=== PATIENT | female | born 1955 | race Caucasian/White ===

== ENCOUNTER 2016-11-04 14:43 | Emergency (ER) | payer MEDICAID ==
[~2016-11-04] VITALS: Ht 157.5 cm; Wt 71.7 kg
[~2016-11-04 14:43] MED LIST: ALBU8I INH; ZITH250T PO
[2016-11-04 14:50] VITALS: BP 139/70; PULSE 66; RESP 16; TEMP 98.3; O2SAT 97
[2016-11-04] MEDS ORDERED: SODIUM CHLOR 0.9% 1000 ML INJ 1,000 ML IV SCH (15:02)
[2016-11-04 15:09] VITALS: BP 124/85; PULSE 61; RESP 18; O2SAT 99
[2016-11-04] MEDS ORDERED: SODIUM CHLORIDE 0.9% FLUSH 10 ML FLUSH IV FLUSH PRN (15:15)
--- NOTE | 2016-11-04 15:15 | PD ---
HPI Chief Complaint: Abdominal Pain Time Seen by Provider: 14:52 Travel History International Travel<30 days: No Contact w/Intl Traveler<30days: No Traveled to known affect area: No History of Present Illness HPI The patient is a 61-year-old female who presents emergency department for 2 months of abdominal bloating, poor appetite, and weight gain. The patient states over the last 2 months she's had increasing abdominal bloating, worse after eating, and states she is only able to eat 3 or 4 bites of food before she becomes bloated. However, the patient states she continues to gain weight despite her decreased oral intake. The patient states she also occasionally will have "gas in the chest "and will burp to alleviate her symptoms. She denies any change in bowel habits. She does have a previous history of total abdominal hysterectomy and appendectomy. She denies any fever , chills, or sweats. She denies any history of thyroid disorders. She does smoke, denies any alcohol use. The patient does not currently have a primary physician. She also states she's never had a colonoscopy screening. Symptoms are moderate, there are no alleviating or exacerbating factors. PFSH Past Medical History Diminished Hearing: No Immunizations Current: Yes Influenza Vaccination: No ?: Not Menopausal: Yes Past Surgical History Appendectomy: Yes Hysterectomy: Yes Social History Alcohol Use: No Tobacco Use: Yes (1.5 PPD) Substance Use: No Allergies-Medications (Allergen,Severity, Reaction): Coded Allergies: No Known Allergies (Unverified , 11/04/16) Reported Meds & Prescriptions Reported Meds & Active Scripts Active Review of Systems Except as stated in HPI: all other systems reviewed are Neg General / Constitutional: Positive: Weight Gain, No: Fever Cardiovascular: No: Chest Pain or Discomfort Respiratory: No: Shortness of Breath Gastrointestinal: Positive: Nausea, Abdominal Pain, Other (as noted in the history of present illness), No: Vomiting, Diarrhea, Changes in Bowel Habits Physical Exam Narrative GENERAL: Awake, alert, pleasant 61-year-old female who appears her stated age and is in no acute respiratory distress. SKIN: Focused skin assessment warm/dry. HEAD: Atraumatic. Normocephalic. EYES: Pupils equal and round. No scleral icterus. No injection or drainage. ENT: No nasal bleeding or discharge. Breath smells of tobacco. NECK: Trachea midline. No JVD. CARDIOVASCULAR: Regular rate and rhythm. No murmur appreciated. RESPIRATORY: No accessory muscle use. Clear to auscultation. Breath sounds equal bilaterally. GASTROINTESTINAL: Abdomen soft, minimally distended, no rebound tenderness. MUSCULOSKELETAL: No obvious deformities. No clubbing. No cyanosis. No edema. NEUROLOGICAL: Awake and alert. No obvious cranial nerve deficits. Motor grossly within normal limits. Normal speech. PSYCHIATRIC: Appropriate mood and affect; insight and judgment normal. Data Data Last Documented VS Vital Signs Date Time Temp Pulse Resp B/P Pulse Ox O2 Delivery O2 Flow Rate FiO2 11/04/16 16:32 58 18 111/68 99 Room Air 11/04/16 14:50 98.3 Orders Complete Blood Count With Diff (11/04/16 15:02) Comprehensive Metabolic Panel (11/04/16 15:02) Lipase (11/04/16 15:02) Urinalysis - C+S If Indicated (11/04/16 15:02) Ct Abd/Pel W Iv Contrast(Rout) (11/04/16 15:02) Iv Access Insert/Monitor (11/04/16 15:02) Ecg Monitoring (11/04/16 15:02) Oximetry (11/04/16 15:02) Sodium Chlor 0.9% 1000 Ml Inj (Ns 1000 M (11/04/16 15:02) Sodium Chloride 0.9% Flush (Ns Flush) (11/04/16 15:15) Thyroid Stimulating Hormone (11/04/16 15:02) Oral Contrast - Adult (11/04/16 15:13) Diatrizoate Liq ( Gastroview Liq) (11/04/16 15:19) Iohexol 350 Inj (Omnipaque 350 Inj) (11/04/16 16:51) Labs Laboratory Tests Test 11/04/16 11/04/16 15:15 15:25 Urine Collection Type CLEAN CATCH Urine Color YELLOW Urine Turbidity CLEAR Urine pH 5.5 Urine Specific Orient 1.027 Urine Protein TRACE mg/dL Urine Glucose (UA) NEG mg/dL Urine Ketones NEG mg/dL Urine Occult Blood MOD Urine Nitrite NEG Urine Bilirubin NEG Urine Leukocyte Esterase NEG Urine RBC 10-14 /hpf Urine WBC 6-8 /hpf Urine Squamous Epithelial > 8 /hpf Cells Urine Bacteria FEW /hpf Microscopic Urinalysis Comment CULT NOT INDICATED Urine Collection Time 15:15 White Blood Count 6.5 TH/MM3 Red Blood Count 4.32 MIL/MM3 Hemoglobin 12.6 GM/DL Hematocrit 37.2 % Mean Corpuscular Volume 86.0 FL Mean Corpuscular Hemoglobin 29.1 PG Mean Corpuscular Hemoglobin 33.9 % Concent Red Cell Distribution Width 13.8 % Platelet Count 233 TH/MM3 Mean Platelet Volume 7.7 FL Neutrophils (%) (Auto) 59.8 % Lymphocytes (%) (Auto) 29.3 % Monocytes (%) (Auto) 8.6 % Eosinophils (%) (Auto) 1.7 % Basophils (%) (Auto) 0.6 % Neutrophils # (Auto) 3.9 TH/MM3 Lymphocytes # (Auto) 1.9 TH/MM3 Monocytes # (Auto) 0.6 TH/MM3 Eosinophils # (Auto) 0.1 TH/MM3 Basophils # (Auto) 0.0 TH/MM3 CBC Comment DIFF FINAL Differential Comment Sodium Level 142 MEQ/L Potassium Level 4.1 MEQ/L Chloride Level 108 MEQ/L Carbon Dioxide Level 27.4 MEQ/L Anion Gap 7 MEQ/L Blood Urea Nitrogen 9 MG/DL Creatinine 1.20 MG/DL Estimat Glomerular Filtration 46 ML/MIN Rate Random Glucose 98 MG/DL Calcium Level 9.4 MG/DL Total Bilirubin 0.3 MG/DL Aspartate Amino Transf 15 U/L (AST/SGOT) Alanine Aminotransferase 18 U/L (ALT/SGPT) Alkaline Phosphatase 101 U/L Total Protein 7.0 GM/DL Albumin 3.6 GM/DL Lipase 91 U/L Thyroid Stimulating Hormone 1.420 uIU/ML 3rd Gen [facility] Medical Decision Making Medical Screen Exam Complete: Yes Emergency Medical Condition: Yes Medical Record Reviewed: Yes Interpretation(s) Laboratory Tests Test 11/04/16 11/04/16 15:15 15:25 Urine Collection Type CLEAN CATCH Urine Color YELLOW Urine Turbidity CLEAR Urine pH 5.5 Urine Specific Orient 1.027 Urine Protein TRACE mg/dL Urine Glucose (UA) NEG mg/dL Urine Ketones NEG mg/dL Urine Occult Blood MOD Urine Nitrite NEG Urine Bilirubin NEG Urine Leukocyte Esterase NEG Urine RBC 10-14 /hpf Urine WBC 6-8 /hpf Urine Squamous Epithelial > 8 /hpf Cells Urine Bacteria FEW /hpf Microscopic Urinalysis Comment CULT NOT INDICATED Urine Collection Time 15:15 White Blood Count 6.5 TH/MM3 Red Blood Count 4.32 MIL/MM3 Hemoglobin 12.6 GM/DL Hematocrit 37.2 % Mean Corpuscular Volume 86.0 FL Mean Corpuscular Hemoglobin 29.1 PG Mean Corpuscular Hemoglobin 33.9 % Concent Red Cell Distribution Width 13.8 % Platelet Count 233 TH/MM3 Mean Platelet Volume 7.7 FL Neutrophils (%) (Auto) 59.8 % Lymphocytes (%) (Auto) 29.3 % Monocytes (%) (Auto) 8.6 % Eosinophils (%) (Auto) 1.7 % Basophils (%) (Auto) 0.6 % Neutrophils # (Auto) 3.9 TH/MM3 Lymphocytes # (Auto) 1.9 TH/MM3 Monocytes # (Auto) 0.6 TH/MM3 Eosinophils # (Auto) 0.1 TH/MM3 Basophils # (Auto) 0.0 TH/MM3 CBC Comment DIFF FINAL Differential Comment Sodium Level 142 MEQ/L Potassium Level 4.1 MEQ/L Chloride Level 108 MEQ/L Carbon Dioxide Level 27.4 MEQ/L Anion Gap 7 MEQ/L Blood Urea Nitrogen 9 MG/DL Creatinine 1.20 MG/DL Estimat Glomerular Filtration 46 ML/MIN Rate Random Glucose 98 MG/DL Calcium Level 9.4 MG/DL Total Bilirubin 0.3 MG/DL Aspartate Amino Transf 15 U/L (AST/SGOT) Alanine Aminotransferase 18 U/L (ALT/SGPT) Alkaline Phosphatase 101 U/L Total Protein 7.0 GM/DL Albumin 3.6 GM/DL Lipase 91 U/L Thyroid Stimulating Hormone 1.420 uIU/ML 3rd Gen CT of the abdomen and pelvis reveals mild hepatosplenomegaly. Mild degenerative changes and scoliosis of the lumbar spine. Differential Diagnosis Differential diagnosis includes gastroparesis, gastric tumor, hypothyroidism, colon cancer, partial small bowel obstruction, gastritis, biliary colic. Narrative Course IV was established, labs are drawn and sent, and the patient was placed on cardiac telemetry monitoring and continuous pulse oximetry monitoring. TSH was sent to lab. CT of the abdomen and pelvis with IV and oral contrast was ordered. UA revealed 10-14 RBCs, otherwise unremarkable. Creatinine was mildly elevated 1.2. TSH was within normal limits. CBC was unremarkable. CT the abdomen and pelvis reveals mild splenomegaly and mild degenerative changes with scoliosis of the lumbar spine but no acute findings. The patient will need to follow-up with an outpatient primary physician and possibly gastroenterology for endoscopy and/or gastric emptying study if symptoms persist. Diagnosis Primary Impression: Postprandial abdominal bloating Patient Instructions: General Instructions Additional Instructions: Please provide the patient a copy of her CT results and lab results at discharge. Follow-up with her primary physician, you may benefit from referral to clinic md associate for EGD and/or gastric emptying study if symptoms persist. Reglan as directed. Med/Other Pt SpecificInfo: Prescription(s) given Scripts Metoclopramide (Reglan)10 Mg Tab10 Mg PO QID PRN (NAUSEA) #12 TAB Ref 0 Prov:Errol Ruiz MD 11/04/16 Disposition: DISCHARGE HOME Condition: Stable Errol Ruiz MD Nov 04, 2016 15:15
[2016-11-04] MEDS ORDERED: DIATRIZOATE MEGLUM/DIATRIZOATE SOD 9 ML CUP ONE (15:19)
[2016-11-04 15:31] LABS: AUTOMATED NEUTROPHIL # 3.9 TH/MM3 (1.8-7.7); BASOPHIL % 0.6 % (0.0-2.0); EOSINOPHIL # 0.1 TH/MM3 (0-0.4); EOSINOPHIL % 1.7 % (0.0-4.0); HEMATOCRIT 37.2 % (35.0-46.0); HEMO FLAGS DIFF FINAL; LYMPH % 29.3 % (9.0-44.0); LYMPHOCYTE # 1.9 TH/MM3 (1.0-4.8); MEAN CORPUSCULAR HEMOGLOBIN 29.1 PG (27.0-34.0); MEAN CORPUSCULAR HGB CONC 33.9 % (32.0-36.0); MONO % 8.6 % (0.0-8.0); NEUT % 59.8 % (16.0-70.0); PLATELET COUNT 233 TH/MM3 (150-450); RED BLOOD COUNT 4.32 MIL/MM3 (4.00-5.30); RED CELL DISTRIBUTION WIDTH 13.8 % (11.6-17.2); WHITE BLOOD COUNT 6.5 TH/MM3 (4.0-11.0)
[2016-11-04 15:34] LABS: GLUCOSE,URINE NEG (NEG); KETONE, URINE NEG (NEG); NITRITE,URINE NEG (NEG); PH, URINE 5.5 (5.0-8.5)
[2016-11-04 15:35] LABS: BLOOD, URINE MOD (NEG)
[2016-11-04 15:36] LABS: BACTERIA, URINE FEW /hpf; COMMENT (UR) CULT NOT INDICATED; CULTURE IF INDICATED CULT NOT INDICATED; METHOD OF COLLECTION CLEAN CATCH; SQUAMOUS EPITHELIAL CELL URINE > 8 /hpf (0-5); URINE COLOR YELLOW (YELLW/STRAW)
[2016-11-04 15:41] LABS: CHLORIDE 108 MEQ/L (98-107); POTASSIUM 4.1 MEQ/L (3.5-5.1); SODIUM (NA) 142 MEQ/L (136-145)
[2016-11-04 15:45] LABS: ANION GAP 7 MEQ/L (5-15); BICARBONATE 27.4 MEQ/L (21.0-32.0); BLOOD UREA NITROGEN 9 MG/DL (7-18)
[2016-11-04 15:48] LABS: ALT (GPT) 18 U/L (10-53); AST (GOT) 15 U/L (15-37); GLOMERULAR FILTRATION RATE 46 ML/MIN (>89)
[2016-11-04 15:49] LABS: TOTAL BILIRUBIN ADULT 0.3 MG/DL (0.2-1.0)
[2016-11-04 15:50] LABS: ALKALINE PHOSPHATASE 101 U/L (45-117)
[2016-11-04 16:32] VITALS: BP 111/68; PULSE 58; RESP 18; O2SAT 99
[2016-11-04] MEDS ORDERED: IOHEXOL 350 MG/ML 10 ML VIAL (for RAD DIAG) IV ONE (16:51)
--- NOTE | 2016-11-04 17:02 | RADRPT ---
EXAM DATE/TIME: 11/04/2016 16:31 [facility] COMPARISON: No previous studies available for comparison. INDICATIONS : Abdominal swelling with pain. IV CONTRAST: 96 cc Omnipaque 350 (iohexol) IV ORAL CONTRAST: Prescribed oral contrast ingested. RADIATION DOSE: 13.47 CTDIvol (mGy) MEDICAL HISTORY : None SURGICAL HISTORY : Appendectomy. Hysterectomy. ENCOUNTER: Initial ACUITY: 2 months PAIN SCALE: 0/10 LOCATION: abdominal awelling. TECHNIQUE: Volumetric scanning of the abdomen and pelvis was performed. Using automated exposure control and adjustment of the mA and/or kV according to patient size, radiation dose was kept as low as reasonably achievable to obtain optimal diagnostic quality images. DICOM format image data is av ailable electronically for review and comparison. FINDINGS: LOWER LUNGS: The visualized lower lungs are clear. LIVER: Mild hepatomegaly is noted. Homogeneous density without lesion. There is no dilation of t he biliary tree. No calcified gallstones. SPLEEN: Mild splenomegaly is noted. PANCREAS: Within normal limits. KIDNEYS: Normal in size and shape. There is no mass, stone or hydronephrosis. ADRENAL GLANDS: Within normal limits. VASCULAR: There is no aortic aneurysm. BOWEL/MESENTERY: The stomach, small bowel, and colon demonstrate no acute abnormality. There is no free intraperitoneal air or fluid. ABDOMINAL WALL: Within normal limits. RETROPERITONEUM: There is no lymphadenopathy. BLADDER: No wall thickening or mass. REPRODUCTIVE: Within normal limits. INGUINAL: There is no lymphadenopathy or hernia. MUSCULOSKELETAL: Mild degenerative changes and scoliosis of the lumbar spine are noted. CONCLUSION: 1. Mild hepatosplenomegaly. 2. Mild degenerative changes and scoliosis of the lumbar spine. Mateo Dixon MD on November 04, 2016 at 16:57 Board Certified Radiologist. This report was verified electronically.
[2016-11-04] MEDS ORDERED: REGL10TA5 PO (17:07)
== END 2016-11-04 17:15 | disposition home or self-care (01) ==
LOC: PHED 14:43
DX: R14.0 Abdominal distension (gaseous) (principal); R63.0 Anorexia; R63.5 Abnormal weight gain; R11.0 Nausea; R10.9 Unspecified abdominal pain; R16.2 Hepatomegaly with splenomegaly, not elsewhere classified; M47.9 Spondylosis, unspecified; M41.86 Other forms of scoliosis, lumbar region; F17.200 Nicotine dependence, unspecified, uncomplicated
CPT/HCPCS: 74177; 80053; 81001; 83690; 84443; 85025; 96360; 99285; J7030; Q9963; Q9967